=== PATIENT | male | born 1940 | race Caucasian/White ===

== ENCOUNTER → 2024-04-05 | Outpatient (CLI) | payer OTHER, MEDICARE ==
[~2024-04-05] MED LIST: ACET-3540 PO; AMIO200T68 PO; APIX5TAB PO; CHOL200013 PO; CYAN-106 PO; HYDR-4064 PO; ISOS60TA77 PO; LATA2.5D14 OU; OLME20TA68 PO; OMEP20CA12 PO; OXYB10TA30 PO; SIMV-43 PO; TAMS-1 PO
== END | disposition home or self-care (01) ==
LOC: RAH 10:42
PROVIDERS: ATTEND Urology
DX: K80.20 Calculus of gallbladder without cholecystitis without obstruction (principal); N13.1 Hydronephrosis with ureteral stricture, not elsewhere classified; N32.89 Other specified disorders of bladder; J84.10 Pulmonary fibrosis, unspecified; K40.90 Unilateral inguinal hernia, without obstruction or gangrene, not specified as recurrent; I70.0 Atherosclerosis of aorta; M47.815 Spondylosis without myelopathy or radiculopathy, thoracolumbar region
CPT/HCPCS: 74176